=== PATIENT | female | born 1975 | race American Indian/Alaskan Native ===

== ENCOUNTER 2017-11-13 06:31 | Emergency (ER) | payer OTHER ==
[2017-11-13] MEDS ORDERED: NACL 0.9% 1000 ML 1,000 ML IV ONE (07:17)
[2017-11-13] MEDS ORDERED: KEPPRA 1,000 MG in NACL 0.9% 100 ML IV STA (07:17)
--- NOTE | 2017-11-13 07:17 | Emergency Department Report ---
ED General Adult HPI - General Chief complaint: Seizure Stated complaint: SEIZURES Source: patient, RN notes reviewed Mode of arrival: Stretcher Limitations: No Limitations - History of Present Illness Initial comments: This is a 41-year-old female, previously unknown to this provider, history of Jaffe's palsy, has a history of seizure disorder, typically takes Keppra, 500 mg twice daily, ran out of medicine 2 days ago, presenting to ER with complaints of breakthrough seizure. Patient reports that she was at home, sitting in a bed , and family thought that she was having a seizure. Patient indicates that prior to the event, she was not having headache, neck pain, chest pain, abdominal pain, shortness of breath, irritative, obstructive urinary symptoms. Patient reports that her last convulsive event was about a month ago. Patient complains of mild body aches. -: Sudden Severity scale (0 -10): 2 Consistency: now resolved Improves with: none Worsens with: none Associated Symptoms: malaise, seizure. denies: confusion, chest pain, cough, diaphoresis, fever/chills, loss of appetite, nausea/vomiting, rash, shortness of breath, syncope, weakness - Related Data Previous Rx's Medication Instructions Recorded Last Taken Type levETIRAcetam [Keppra TAB] 500 mg PO BID #60 tablet 11/13/17 Unknown Rx Allergies Allergy/AdvReac Type Severity Reaction Status Date / Time No Known Allergies Allergy Unverified 11/13/17 06:52 ED Review of Systems ROS: Stated complaint: SEIZURES Other details as noted in HPI ED Past Medical Hx - Past Medical History Previous Medical History?: Yes Hx Seizures: Yes Additional medical history: bells palsy - Surgical History Past Surgical History?: Yes Additional Surgical History: D&C, tuber ligation - Social History Smoking Status: Never Smoker Substance Use Type: None - Medications Home Medications: Home Medications Medication Instructions Recorded Confirmed Last Taken Type levETIRAcetam [Keppra TAB] 500 mg PO BID #60 tablet 11/13/17 Unknown Rx ED Physical Exam - General Limitations: No Limitations General appearance: alert, in no apparent distress - Head Head exam: Present: atraumatic, normocephalic - Eye Eye exam: Present: normal appearance (chronic drooping of the right eyelid as per patient, this is secondary to chronic Jaffe's palsy), PERRL, EOMI, other ( visual acuity intact to finger counting, color perception, reading at a close distance). Absent: nystagmus - ENT ENT exam: Present: normal exam, normal orophraynx, mucous membranes moist, normal external ear exam - Neck Neck exam: Present: normal inspection, full ROM - Respiratory Respiratory exam: Present: normal lung sounds bilaterally. Absent: respiratory distress - Cardiovascular Cardiovascular Exam: Present: regular rate, normal rhythm, normal heart sounds. Absent: systolic murmur, diastolic murmur, rubs, gallop - GI/Abdominal GI/Abdominal exam: Present: soft, normal bowel sounds. Absent: distended, tenderness, guarding, rebound, rigid - Extremities Exam Extremities exam: Present: normal inspection, full ROM, normal capillary refill. Absent: tenderness, pedal edema, joint swelling, calf tenderness - Back Exam Back exam: Present: normal inspection, full ROM. Absent: tenderness, CVA tenderness (R), paraspinal tenderness, vertebral tenderness - Neurological Exam Neurological exam: Present: alert, oriented X3, CN II-XII intact, normal gait ( normal [id number], negative Romberg, negative pass pointing, negative pronator drift), other (Extraocular movements intact. Tongue midline. No facial droop. Facial sensation intact to light touch in the V1, V2, V3 distribution bilaterally. 5 and 5 strength in 4 extremities.. Sensation is intact to light touch in 4 extremities.). Absent: motor sensory deficit - Psychiatric Psychiatric exam: Present: normal affect, normal mood - Skin Skin exam: Present: warm, dry, intact, normal color. Absent: rash ED Course Vital Signs 11/13/17 11/13/17 06:36 08:32 Temperature 98.2 F Pulse Rate 115 H 82 Respiratory 16 16 Rate Blood Pressure 135/81 Blood Pressure 135/81 123/71 [Left] O2 Sat by Pulse 97 Oximetry ED Medical Decision Making - Lab Data Result diagrams: 11/13/17 07:18 11/13/17 07:18 Vital Signs 11/13/17 11/13/17 06:36 08:32 Temperature 98.2 F Pulse Rate 115 H 82 Respiratory 16 16 Rate Blood Pressure 135/81 Blood Pressure 135/81 123/71 [Left] O2 Sat by Pulse 97 Oximetry Lab Results 11/13/17 11/13/17 11/13/17 Range/Units 06:50 06:50 06:50 WBC (4.5-11.0) K/mm3 RBC (3.65-5.03) M/mm3 Hgb (10.1-14.3) gm/dl Hct (30.3-42.9) % MCV (79-97) fl MCH (28-32) pg MCHC (30-34) % RDW (13.2-15.2) % Plt Count (140-440) K/mm3 Sodium (137-145) mmol/L Potassium (3.6-5.0) mmol/L Chloride (98-107) mmol/L Carbon Dioxide (22-30) mmol/L Anion Gap mmol/L BUN (7-17) mg/dL Creatinine (0.7-1.2) mg/dL Estimated GFR ml/min BUN/Creatinine Ratio % Glucose (65-100) mg/dL Calcium (8.4-10.2) mg/dL Total Creatine Kinase (30-135) units/L Urine Color Straw (Yellow) Urine Turbidity Clear (Clear) Urine pH 5.0 (5.0-7.0) Ur Specific [place] 1.012 (1.003-1.030) Urine Protein <15 mg/dl (Negative) mg/dL Urine Glucose (UA) Neg (Negative) mg/dL Urine Ketones Neg (Negative) mg/dL Urine Blood Mod (Negative) Urine Nitrite Neg (Negative) Urine Bilirubin Neg (Negative) Urine Urobilinogen < 2.0 (<2.0) mg/dL Ur Leukocyte Esterase Neg (Negative) Urine WBC (Auto) 2.0 (0.0-6.0) /HPF Urine RBC (Auto) 3.0 (0.0-6.0) /HPF U Epithel Cells (Auto) 1.0 (0-13.0) /HPF Urine Bacteria (Auto) 1+ (Negative) /HPF Urine Mucus Few /HPF Urine HCG, Qual Negative (Negative) Urine Opiates Screen Presumptive negative Urine Methadone Screen Presumptive negative Ur Barbiturates Screen Presumptive negative Ur Phencyclidine Scrn Presumptive negative Ur Amphetamines Screen Presumptive negative U Benzodiazepines Scrn Presumptive negative Urine Cocaine Screen Presumptive negative U Marijuana (THC) Screen Presumptive negative Drugs of Abuse Note Disclamer 11/13/17 11/13/17 11/13/17 Range/Units 07:18 07:18 07:18 WBC 8.8 (4.5-11.0) K/mm3 RBC 4.85 (3.65-5.03) M/mm3 Hgb 13.1 (10.1-14.3) gm/dl Hct 39.1 (30.3-42.9) % MCV 81 (79-97) fl MCH 27 L (28-32) pg MCHC 34 (30-34) % RDW 14.7 (13.2-15.2) % Plt Count 352 (140-440) K/mm3 Sodium 136 L (137-145) mmol/L Potassium 3.6 (3.6-5.0) mmol/L Chloride 99.7 (98-107) mmol/L Carbon Dioxide 24 (22-30) mmol/L Anion Gap 16 mmol/L BUN 12 (7-17) mg/dL Creatinine 0.6 L (0.7-1.2) mg/dL Estimated GFR > 60 ml/min BUN/Creatinine Ratio 20 % Glucose 130 H (65-100) mg/dL Calcium 8.9 (8.4-10.2) mg/dL Total Creatine Kinase 95 (30-135) units/L Urine Color (Yellow) Urine Turbidity (Clear) Urine pH (5.0-7.0) Ur Specific [place] (1.003-1.030) Urine Protein (Negative) mg/dL Urine Glucose (UA) (Negative) mg/dL Urine Ketones (Negative) mg/dL Urine Blood (Negative) Urine Nitrite (Negative) Urine Bilirubin (Negative) Urine Urobilinogen (<2.0) mg/dL Ur Leukocyte Esterase (Negative) Urine WBC (Auto) (0.0-6.0) /HPF Urine RBC (Auto) (0.0-6.0) /HPF U Epithel Cells (Auto) (0-13.0) /HPF Urine Bacteria (Auto) (Negative) /HPF Urine Mucus /HPF Urine HCG, Qual (Negative) Urine Opiates Screen Urine Methadone Screen Ur Barbiturates Screen Ur Phencyclidine Scrn Ur Amphetamines Screen U Benzodiazepines Scrn Urine Cocaine Screen U Marijuana (THC) Screen Drugs of Abuse Note - EKG Data -: EKG Interpreted by Me Rate: normal - EKG Data When compared to previous EKG there are: previous EKG unavailable 11/13/17 09:16 Sinus tachycardia, 118 bpm, normal axis, normal intervals, not morphologically consistent with ST elevation myocardial infarction. - Medical Decision Making Differential diagnosis, including but not limited to: Breakthrough seizure secondary to medication noncompliance, myositis Assessment and plan: A year-old female with chronic right-sided eyelid drooping secondary to Jaffe's palsy with breakthrough seizure, most likely secondary to medication noncompliance, patient indicates she is not taking her medication for the past 3 days. Patient is afebrile with reassuring vital signs, clinically sober, walks with a steady gait, has a GCS of 15, with an NIH score of 0. She is loaded with 1 g of her antiepileptic drug medication, given 1 L of normal saline. Her tachycardia resolved, she did not have any further convulsive events, and she will be discharged with a refill on her medications, and she is instructed to not drive or operate motor vehicles for the next 6 months. Patient will be discharged at this time, return precautions are reviewed. Critical care attestation.: If time is entered above; I have spent that time in minutes in the direct care of this critically ill patient, excluding procedure time. ED Disposition Clinical Impression: Seizure Disposition: DC-01 TO HOME OR SELFCARE Is pt being admited?: No Does the pt Need Aspirin: No Condition: Stable Instructions: Recurrent Seizures Adult (ED) Additional Instructions: Take his seizure medication as directed. Do not drive a car or operate motor vehicles for the next 6 months. Follow up with any of the listed neurology specialist, or the patient's private neurology specialist within the next 7-10 days. Noncompliance with seizure medication can result in breakthrough seizure , which in turn can result in disability, , paralysis, loss of quality of life. Therefore, it is very important to take seizure medication. Return to the ER right away with recurrent seizure, fevers, chills, chest pain, shortness of breath, confusion, change in mental status, inability to tolerate liquid feeds, weakness, numbness, unsteady gait, loss of vision. Referrals: PRIMARY CARE, [Primary Care Provider] - 3-5 Days LORI DRAKE MD [Referring] - 3-5 Days YOSELIN JIANG MD [Staff Physician] - 3-5 Days DENNY TORRES MD [Staff Physician] - 3-5 Days
[2017-11-13] MEDS ORDERED: KEPPRA 1,000 MG/NS 0.75% 100ML 1,000 MG/100 ML BAG IV STA (07:22)
[2017-11-13 07:37] LABS: Hematocrit 39.1 % (30.3-42.9); Hemoglobin 13.1 gm/dl (10.1-14.3); Mean Corpuscular HGB Conc 34 % (30-34); Mean Corpuscular Hemoglobin 27 pg (28-32); Mean Corpuscular Volume 81 fl (79-97); Platelet Count 352 K/mm3 (140-440); Red Blood Count 4.85 M/mm3 (3.65-5.03); Red Cell Distribution Width 14.7 % (13.2-15.2)
[2017-11-13 07:50] LABS: BUN/Creatinine Ratio 20; Blood Urea Nitrogen 12 mg/dL (7-17); Calcium 8.9 mg/dL (8.4-10.2); Hemolysis Index 6
[2017-11-13] MEDS ORDERED: TORADOL IV ONE (08:02)
[2017-11-13 08:25] LABS: Amphetamine Screen,Urine PRESUMPTIVE NEGATIVE; Benzodiazepines Screen,Urine PRESUMPTIVE NEGATIVE; Cannabinoid Screen,Urine PRESUMPTIVE NEGATIVE; Cocaine Screen,Urine PRESUMPTIVE NEGATIVE; Methadone Screen,Urine PRESUMPTIVE NEGATIVE; Opiate Screen,Urine PRESUMPTIVE NEGATIVE
[2017-11-13 08:26] LABS: Bacteria,Urine 1+ /HPF (Negative); Bilirubin,Urine NEG (Negative); Blood,Urine MOD (Negative); Color,Urine Straw (Yellow); Mucus,Urine FEW /HPF; Nitrite,Urine NEG (Negative); Protein,Urine <15 mg/dL mg/dL (Negative); Urobilinogen,Urine < 2.0 mg/dL (<2.0)
[2017-11-13 09:07] LABS: HCG Qualitative,Urine Negative (Negative)
[2017-11-13 09:42] VITALS: BP 128/78
== END 2017-11-13 09:45 | disposition home or self-care (01) ==
LOC: ED 06:31
DX: R56.9 Unspecified convulsions (principal); R53.81 Other malaise
CPT/HCPCS: 36415; 80048; 80307; 81001; 81025; 82550; 85027; 93005; 93010; 96374; 96375; 99284; J1885; J1953; J7030

== ENCOUNTER 2021-08-21 09:15 | Emergency (ER) | payer MEDICAID ==
[2021-08-21 09:22] VITALS: BP 165/92
--- NOTE | 2021-08-21 10:35 | Emergency Department Report ---
ED General Adult HPI - General Chief complaint: High BP Stated complaint: BLOOD PRESSURE HIGH Time Seen by Provider: 08/21/21 09:44 Source: patient Mode of arrival: Ambulatory Limitations: No Limitations - History of Present Illness Initial comments: 45-year-old -[place] female patient with history of seizure disorder presents with complaints of elevated blood pressure reading yesterday. She is unsure of what the blood pressure reading was but denies any history of hypertension. She also denies any headache, vision changes, dizziness, numbn ess/tingling/weakness in her limbs, chest pain, shortness of breath, or difficulty with speech/ambulation. Patient is also requesting a refill of her Keppra. She is not currently following with a PCP. - Related Data Previous Rx's Medication Instructions Recorded Last Taken Type levETIRAcetam [Keppra TAB] 500 mg PO BID 30 Days #60 tablet 08/21/21 Unknown Rx Allergies Allergy/AdvReac Type Severity Reaction Status Date / Time No Known Allergies Allergy Unverified 11/13/17 06:52 ED Review of Systems ROS: Stated complaint: BLOOD PRESSURE HIGH Other details as noted in HPI Constitutional: denies: chills, fever, malaise Eyes: denies: eye pain, vision change Respiratory: denies: cough, shortness of breath Cardiovascular: denies: chest pain Gastrointestinal: denies: abdominal pain, nausea, vomiting Musculoskeletal: denies: back pain Neurological: denies: headache, weakness, numbness, paresthesias, confusion Hematological/Lymphatic: denies: easy bruising ED Past Medical Hx - Past Medical History Previous Medical History?: Yes Hx Seizures: Yes Additional medical history: bells palsy - Surgical History Past Surgical History?: Yes Additional Surgical History: D&C, tuber ligation - Social History Smoking Status: Never Smoker Substance Use Type: None - Medications Home Medications: Home Medications Medication Instructions Recorded Confirmed Last Taken Type levETIRAcetam [Keppra TAB] 500 mg PO BID 30 Days #60 tablet 08/21/21 Unknown Rx ED Physical Exam - General Limitations: No Limitations General appearance: alert, in no apparent distress - Head Head exam: Present: atraumatic, normocephalic - Eye Eye exam: Present: normal appearance, PERRL, EOMI. Absent: scleral icterus - Neck Neck exam: Present: normal inspection - Respiratory Respiratory exam: Present: normal lung sounds bilaterally. Absent: respiratory distress - Cardiovascular Cardiovascular Exam: Present: regular rate, normal rhythm. Absent: systolic murmur, diastolic murmur, rubs, gallop - Neurological Exam Neurological exam: Present: alert, oriented X3, CN II-XII intact, normal gait. Absent: motor sensory deficit - Expanded Neurological Exam Expanded Cerebellar function: Finger to Nose: Normal, Heel to [place]: Normal, Romberg: Normal Sensory exam: Upper Extremity Light Touch: Normal, Lower Extremity Light Touch: Normal Motor strength exam: RUE: 4, LUE: 4, RLE: 4, LLE: 4 Best Eye Response ([place]): (4) open spontaneously Best Motor Response ([place]): (6) obeys commands Best Verbal Response ([place]): (5) oriented Scott Total: 15 - Psychiatric Psychiatric exam: Present: normal affect, normal mood - Skin Skin exam: Present: warm, dry, intact, normal color. Absent: rash ED Course Vital Signs 08/21/21 09:21 Temperature 98.1 F Pulse Rate 87 Respiratory 18 Rate Blood Pressure 165/92 O2 Sat by Pulse 100 Oximetry ED Medical Decision Making - Medical Decision Making 45-year-old -[place] female patient with history of seizure disorder presents with complaints of elevated blood pressure reading yesterday. She is unsure of what the blood pressure reading was but denies any history of hypertension. She also denies any headache, vision changes, dizziness, numbness/tingling/weakness in her limbs, chest pain, shortness of breath, or difficulty with speech/ambulation. Patient is also requesting a refill of her Keppra. She is not currently following with a PCP. Blood pressure noted to be elevated at 165/92, however patient is neurologically intact and denies any symptoms. Recommend patient follows up outpatient with primary care for recheck of blood pressure and confirmation and treatment of hypertension. Keppra refill given. She is well-appearing and stable for discharge home. Discussed signs and symptoms that should prompt immediate return to the emergency department in detail with patient who verbalizes und erstanding. Critical care attestation.: If time is entered above; I have spent that time in minutes in the direct care of this critically ill patient, excluding procedure time. ED Disposition Clinical Impression: Elevated blood pressure reading Disposition: HOME / SELF CARE / HOMELESS Is pt being admited?: No Condition: Stable Instructions: Managing Your Hypertension, Hypertension, Adult, [id number] Prescriptions: levETIRAcetam [Keppra TAB] 500 mg PO BID 30 Days #60 tablet Referrals: [facility] [Provider Group] - 3-5 Days
== END 2021-08-21 10:53 | disposition home or self-care (01) ==
LOC: ED 09:15
DX: R03.0 Elevated blood-pressure reading, without diagnosis of hypertension (principal); G40.909 Epilepsy, unspecified, not intractable, without status epilepticus; G51.0 Bell's palsy; Z98.890 Other specified postprocedural states
CPT/HCPCS: 99281

== ENCOUNTER 2022-07-18 10:07 | Emergency (ER) | payer MEDICAID ==
[2022-07-18 10:14] VITALS: BP 114/76
--- NOTE | 2022-07-18 12:24 | Cat Scan Report ---
CT ORBITS / MAXILLOFACIAL WITHOUT CONTRAST INDICATION / CLINICAL INFORMATION: ear pain swelling mastoid tenderness. TECHNIQUE: All CT scans at this location are performed using CT dose reduction for ALARA by means of automated exposure control. COMPARISON: None available. FINDINGS: FACIAL BONES: No fracture or other significant abnormality. PARANASAL SINUSES: No significant abnormality. ORBITS: No significant abnormality. SOFT TISSUES: No significant abnormality. VISUALIZED INTRACRANIAL STRUCTURES: No significant abnormality. ADDITIONAL FINDINGS: Bilateral external auditory canals, middle ears, and inner ears are normal. IMPRESSION: 1. No significant abnormality. Signer Name: Fito Santiago MD Signed: 07/18/2022 12:20 PM Workstation Name: [email or web address]
--- NOTE | 2022-07-18 12:33 | Emergency Department Report ---
ED General Adult HPI - General Chief complaint: Earache Stated complaint: PAIN BEHIND RIGHT EAR Time Seen by Provider: 07/18/22 11:39 Source: patient Mode of arrival: Ambulatory Limitations: No Limitations - History of Present Illness Initial comments: Patient 46-year-old female who presents for right posterior ear pain treated for AOM at primary care dates mastoid pain and swelling for the past week. There is no fevers no chills no nausea no vomiting no dizziness or lightheadedness no vertigo. Is been no decrease in vision. Mentation is appropriate. No other history. Symptoms are exacerbated by palpation. Symptoms are relieved by nothing tried. No obvious swelling or drainage or deformity noted at this time. - Related Data Previous Rx's Medication Instructions Recorded Last Taken Type levETIRAcetam [Keppra TAB] 500 mg PO BID 30 Days #60 tablet 08/21/21 Unknown Rx Allergies Allergy/AdvReac Type Severity Reaction Status Date / Time No Known Allergies Allergy Verified 07/18/22 10:09 ED Review of Systems ROS: Stated complaint: PAIN BEHIND RIGHT EAR Other details as noted in HPI Constitutional: malaise. denies: chills, fever Eyes: denies: eye pain, eye discharge, vision change ENT: ear pain Respiratory: denies: cough, shortness of breath, wheezing Cardiovascular: denies: chest pain, palpitations Endocrine: no symptoms reported Gastrointestinal: denies: abdominal pain, nausea, diarrhea Genitourinary: denies: urgency, dysuria, discharge Musculoskeletal: denies: back pain, joint swelling, arthralgia Skin: denies: rash, lesions Neurological: denies: headache, weakness, paresthesias Psychiatric: denies: anxiety, depression Hematological/Lymphatic: denies: easy bleeding, easy bruising ED Past Medical Hx - Past Medical History Hx Hypertension: Yes Hx Seizures: Yes Additional medical history: bells palsy - Surgical History Additional Surgical History: D&C, tuber ligation - Social History Smoking Status: Never Smoker Substance Use Type: None - Medications Home Medications: Home Medications Medication Instructions Recorded Confirmed Last Taken Type levETIRAcetam [Keppra TAB] 500 mg PO BID 30 Days #60 tablet 08/21/21 Unknown Rx ED Physical Exam - General Limitations: No Limitations General appearance: alert, in no apparent distress - Head Head exam: Present: normocephalic, normal inspection, other (Noted right posterior mastoid tenderness and lymph chain no erythema no drainage no fever) - Eye Eye exam: Present: PERRL, EOMI. Absent: conjunctival injection, nystagmus Pupils: Present: normal accommodation - ENT ENT exam: Present: mucous membranes moist - Neck Neck exam: Present: normal inspection, full ROM. Absent: tenderness, lymphadenopathy - Respiratory Respiratory exam: Present: normal lung sounds bilaterally. Absent: respiratory distress, wheezes - Cardiovascular Cardiovascular Exam: Present: regular rate, normal rhythm, normal heart sounds. Absent: systolic murmur, diastolic murmur, rubs, gallop - GI/Abdominal GI/Abdominal exam: Present: soft, normal bowel sounds - Rectal Rectal exam: Present: deferred - Extremities Exam Extremities exam: Present: normal inspection, full ROM, normal capillary refill. Absent: tenderness - Back Exam Back exam: Present: normal inspection, full ROM. Absent: paraspinal tenderness, vertebral tenderness - Neurological Exam Neurological exam: Present: alert, oriented X3, CN II-XII intact, normal gait - Expanded Neurological Exam Expanded Patient oriented to: Present: person, place, time Speech: Present: fluid speech Motor strength exam: RUE: 5, LUE: 5, RLE: 5, LLE: 5 Best Eye Response ([place]): (4) open spontaneously Best Motor Response ([place]): (6) obeys commands Best Verbal Response ([place]): (5) oriented Scott Total: 15 - Psychiatric Psychiatric exam: Present: normal affect - Skin Skin exam: Present: warm, dry, intact, normal color. Absent: rash ED Course Vital Signs 07/18/22 07/18/22 10:11 10:13 Temperature 98.2 F Pulse Rate 80 Respiratory 20 Rate Blood Pressure 114/76 O2 Sat by Pulse 98 Oximetry ED Medical Decision Making - Radiology Data Radiology results: report reviewed, image reviewed CT ORBITS / MAXILLOFACIAL WITHOUT CONTRAST INDICATION / CLINICAL INFORMATION: ear pain swelling mastoid tenderness. TECHNIQUE: All CT scans at this location are performed using CT dose reduction for ALARA by means of automated exposure control. COMPARISON: None available. FINDINGS: FACIAL BONES: No fracture or other significant abnormality. PARANASAL SINUSES: No significant abnormality. ORBITS: No significant abnormality. SOFT TISSUES: No significant abnormality. VISUALIZED INTRACRANIAL STRUCTURES: No significant abnormality. ADDITIONAL FINDINGS: Bilateral external auditory canals, middle ears, and inner ears are normal. IMPRESSION: 1. No significant abnormality. Signer Name: Saritha Torres MD Signed: 07/18/2022 12:20 PM Workstation Name: [id number] Transcribed By: VAN Dictated By: SARITHA TORRES MD Electronically Authenticated By: SARITHA TORRES MD Signed Date/Time: 07/18/22 1220 DD/ 1217 TD/TT: - Medical Decision Making CT mastoid is normal, ENT exam is normal, there is noted mastoid tenderness and lymph chain no erythema no fever or motions intact patient with normal mentation. Mild right ear canal tenderness no effusion noted TMs intact. Plan DC to home continue to follow-up with your primary care doctor and ENT as scheduled. Critical care attestation.: If time is entered above; I have spent that time in minutes in the direct care of this critically ill patient, excluding procedure time. ED Disposition Clinical Impression: Lymphadenitis Disposition: 01 HOME / SELF CARE / HOMELESS Is pt being admited?: No Does the pt Need Aspirin: No Condition: Stable Instructions: Lymphangitis, Adult Additional Instructions: Continue medications as prescribed, follow-up with your primary care doctor in 2 to 3 days. Return to emergency department if symptoms worsen. Referrals: PRIMARY MD MENDOZA [Primary Care Provider] - 3-5 Days KARLI MOODY MD [Staff Physician] - 3-5 Days Forms: Work/School Release Form(ED) Time of Disposition: 12:33
== END 2022-07-18 14:01 | disposition home or self-care (01) ==
LOC: ED 10:07
DX: I88.9 Nonspecific lymphadenitis, unspecified (principal); H92.01 Otalgia, right ear; I10 Essential (primary) hypertension; Z98.51 Tubal ligation status; Z98.890 Other specified postprocedural states; Z79.899 Other long term (current) drug therapy
CPT/HCPCS: 70480; 99283